=== PATIENT | female | born 1970 | race Two or more races ===

== ENCOUNTER → 2025-08-16 | Emergency (ER) | payer OTHER ==
[~2025-08-16] VITALS: Ht 167.6 cm; Wt 89.8 kg
[~2025-08-16] MED LIST: 0.9 % SODIUM CHLORIDE 1,000 ML IV ONE; ACETAMINOPHEN 500 MG GEL..CAP PO ONE; ARTIFICIAL TEAR15 ML OP; DEXAMETHASONE SODIUM PHOSPHATE 4 MG/ML VIAL IV ONE; MEDROLPACK PO
[2025-08-16 14:23] LABS: BASO % 0.7 % (0.1-1.2); EOS # 0.10 (0.04-0.54); EOS % 1.5 % (0.7-7.0); LYMPH # 2.65 (1.18-3.74); LYMPH % 39.5 % (19.3-53.1); MONO # 0.44 (0.24-0.82); MONO % 6.6 % (4.7-12.5); NEUT # 3.46 (1.56-6.13); NEUT % 51.6 % (34.0-71.1); RED CELL DISTRIBUTION WIDTH 14.7 % (11.6-14.4)
[2025-08-16 14:43] LABS: INR 0.96
[2025-08-16 15:03] LABS: ALT/SGPT 21.0 U/L (12-78); AST/SGOT 18.0 U/L (15-37); BILIRUBIN TOTAL 0.19 mg/dL (0.3-1.2); BUN CREA RATIO 20.0 (7.0-25.0); CREATININE SERUM 0.66 mg/dL (0.55-1.02); GFR 93.33; GLOBULINA 4.2 G/DL (2.4-3.5); GLUCOSE FASTING 95.0 mg/dL (65-100); OSMOLALITY SERUM 283.0 MOSM/KG (275-295)
== END | disposition home or self-care (01) ==
LOC: ER 10:20
PROVIDERS: General Practice
DX: G51.0 Bell's palsy (principal)